=== PATIENT | female | born 2000 | race Asian ===

== ENCOUNTER 2018-12-13 12:52 | Emergency (ER) | payer BC ==
--- NOTE | 2018-12-13 13:08 | ED ---
Respiratory - HPI Summary HPI Summary: Patient is a 18-year-old female who presents emergency department for cough, fever, sore throat and headache that started 3-4 days ago. Patient denies past medical history other than heart murmur. Fever is reduced with Advil. Patient denies associated symptoms of vomiting, diarrhea, urinary symptoms, abdominal pain. Patient is a student at [employer]. Immunizations are up-to-date. Denies sick contacts. Symptoms are mild in severity. - History of Current Complaint Chief Complaint: EDUpperRespComplaint Stated Complaint: COUGH/HOT AND COLD/DIZZINESS Time Seen by Provider: 12/13/18 13:06 Hx Obtained From: Patient Pain Intensity: 4 - Allergy/Home Medications Allergies/Adverse Reactions: Allergies Allergy/AdvReac Type Severity Reaction Status Date / Time aspirin Allergy Unknown Verified 12/13/18 13:05 Reaction Details PMH/Surg Hx/FS Hx/Imm Hx Previously Healthy: Yes Infectious Disease History: No Infectious Disease History: Denies: Traveled Outside the [place] in Last 30 Days - Family History Known Family History: Positive: Non-Contributory - Social History Occupation: Student Lives: Dormitory/Roommates Review of Systems Positive: Chills. Negative: Fever Eyes: Negative Positive: Sore Throat, Nasal Discharge Cardiovascular: Negative Positive: Cough. Negative: Shortness Of Breath Gastrointestinal: Negative Negative: Abdominal Pain, Vomiting, Diarrhea Genitourinary: Negative Negative: dysuria Positive: Myalgia Skin: Negative Positive: Headache All Other Systems Reviewed And Are Negative: Yes Physical Exam Triage Information Reviewed: Yes Vital Signs On Initial Exam: Initial Vitals Temp Pulse Resp BP Pulse Ox 98.9 F 81 16 143/105 98 12/13/18 13:01 12/13/18 13:01 12/13/18 13:01 12/13/18 13:01 12/13/18 13:01 Vital Signs Reviewed: Yes Appearance: Positive: Well-Appearing - Pt. sitting up in bed in NAD. Friend present. Skin: Positive: Warm, Dry Head/Face: Positive: Normal Head/Face Inspection Eyes: Positive: Normal, EOMI, MALCOM, Conjunctiva Clear ENT: Positive: Other - Fluid behind bilateral TMs without erythema. Oral pharynx is injected with mild tonsilar edema bilaterally without exudate. Uvula is midline. Neck: Positive: Supple, Nontender. Negative: Nuchal Rigidity Respiratory/Lung Sounds: Positive: Other - Rhonchi left lower base, otherwise clear throughout.. Negative: Wheezes Cardiovascular: Positive: Normal, RRR, Murmur - pt. is aware of murmur Abdomen Description: Positive: Nontender, Soft Musculoskeletal: Positive: Normal, Strength/ROM Intact Neurological: Positive: Normal, CN Intact II-III Psychiatric: Positive: Affect/Mood Appropriate Diagnostics - Vital Signs Vital Signs Temp Pulse Resp BP Pulse Ox 12/13/18 13:01 98.9 F 81 16 143/105 98 - Laboratory Lab Statement: Any lab studies that have been ordered have been reviewed, and results considered in the medical decision making process. Disposition - Course Course Of Treatment: Present with the above symptoms. She is afebrile with stable vital signs. Rapid strep is negative. Chest x-ray shows a questionable right middle lobe infiltrate, reading per radiology. We'll treat with doxycycline. Advised to increase fluids and rest. Tylenol or Motrin for pain and fever as directed. Will follow up with [facility] return to the ER symptoms change or worsen. Patient understands and agrees with plan. - Differential Dx - Cardiopulmonary Differential Diagnoses - Cardiopulmonary: Bronchitis, Influenza, Sinusitis - Diagnoses Provider Diagnoses: Pneumonia Discharge - Sign-Out/Discharge Documenting (check all that apply): Patient Departure Patient Received Moderate/Deep Sedation with Procedure: No - Discharge Plan Condition: Good Disposition: HOME Prescriptions: DOXYcycline CAP(*) [DOXYcycline 100MG CAP(*)] 100 mg PO BID #20 cap Patient Education Materials: Pneumonia (ED) Referrals: [facility] [Outside] Additional Instructions: Schedule a follow up with [facility] in 2-3 days Take antibiotic as directed Increase fluids and rest Tylenol or Motrin for pain and fever as directed Return to ER if symptoms change or worsen - Billing Disposition and Condition Condition: GOOD Disposition: Home
[2018-12-13 14:03] LABS: Rapid Strep Molecular Negative (Negative)
[2018-12-13 14:47] VITALS: BP 139/88
== END 2018-12-13 14:46 | disposition home or self-care (01) ==
LOC: ED 12:52
DX: J18.9 Pneumonia, unspecified organism (principal)
CPT/HCPCS: 71046; 87651; 99282